=== PATIENT | male | born 1965 | race Two or more races ===

== ENCOUNTER 2024-01-05 14:50 | Outpatient (AMB) | payer OTHER, SELFPAY ==
[2024-01-05 14:59] VITALS: BP 128/66; PULSE 66; O2SAT 98; BMI 38.8
--- NOTE | 2024-01-05 14:59 | MHC.PC.OV ---
Vital Signs 01/05/24 14:59 Height 5 ft 7 in Weight 248 lb BMI 38.8 BP 128/66 Blood Pressure Location Lt brachial Position Sitting Pulse 66 Pulse Source Pulse Oximeter Pulse Oximetry (%) 98 Oxygen Delivery Method Room Air Intake Visit Reasons: New Patient/ Sleep Apnea Intake Note: Patient is here as a new patient, and he had a DOT physical, and they were concerned of his weight and thickness of his neck, patient has paperwork, he had gallbladder removed, and had a hernia pushed in. Allergies No Known Allergies Allergy (Unverified 01/05/24 15:06) Tobacco use date assessed: 01/05/24 Dental Screening Dental Screen Date: 01/05/24 Did you have a dental visit in the last 12 months?: Yes Did you have a dental problem in the last 6 months where you did not have access to dental care?: No Was dental information given to patient?: Patient has dentist HPI New Patient/ Sleep Apnea HPI Details New patient Prior PCP:?No recent PCP Acute issue(s): DOT referred for Weight & Neck Size; Concern for BETHANY PMHx: obesity SurgHx: GB. Umbilical Hernia FHx: Mom: . unknown, Dad: Unknown Half Brother: HTN. SocHx: Nonsmoker. EtOH None. No drugs PFSH Surgical History (Updated 01/05/24 @ 15:15 by Hedy Malhotra [facility]) Hx of cholecystectomy Social History (Updated 01/05/24 @ 15:22 by Hedy Malhotra [facility]) Household Members: Spouse Both parents involved: No Caregiver staying overnight: No Housing: House Are you a primary career counselor to a significant other at home: No Do you presently have visiting nurse or other home services: No 75 years or older and lives alone: No Alcohol intake: never Patient Tobacco Use Status: Never used Tobacco e-Cigarette/Vaping Use: Never Used service: No Current occupational status: employed 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 1. Little interest or pleasure in doing things: not at all 2. Feeling down, depressed, or hopeless: not at all 3. Trouble falling or staying asleep, or sleeping too much: not at all 4. Feeling tired or having little energy: not at all 5. Poor appetite or overeating: not at all 6. Feeling bad about yourself - or that you are a failure or have let yourself or your family down: several days 7. Trouble concentrating on things, such as reading the newspaper or watching television: not at all 8. Moving or speaking so slowly that other people could have noticed. Or the opposite - being so fidgety or restless that you have been moving around a lot more than usual: not at all 9. Thoughts that you would be better off or of hurting yourself in some way: not at all Total score: 1 Depression Screening Interpretation: Negative Depression Screening Done: Yes 50855 - PHQ-9 Billing: Yes Source: Developed by Drs. Cruz Guerin, Kendra Carpenter, Theodore Montes and colleagues, with an educational antionette from [employer]. Thrive Questionnaire Date Thrive assessed: 01/05/24 I am a: Patient What is your living situation today?: I have a steady place to live Within the past 12 months, did the food you bought not last and you didn't have the money to get more?: Never true Within the past 12 months, did you worry whether your food would run out before you got money to buy more?: Never true Do you have trouble paying for medicines?: No Do you have trouble getting transportation to medical appointments?: No Do you have trouble paying your heating and electricity bill?: No Do you have trouble taking care of your child, family member or friend?: No Do you have trouble with day-to-day activities such as bathing, preparing meals, shopping, managing finances, etc.?: No Are you currently unemployed and looking for a job?: No Are you interested in more education?: No THRIVE Score: 0 AUDIT C Alcohol Use Questionnaire (AUDIT-C) 1. How often do you have a drink containing alcohol?: Never 3. How often do you have six or more drinks on one occasion?: Never Total Score: 0 MENDY-7 AMB Questionnaire MENDY-7 Date MENDY - 7 assessed: 01/05/24 Feeling nervous, anxious, or on edge: 0 = Not at all Not being able to stop or control worryin = Not at all Worrying too much about different things: 0 = Not at all Trouble relaxin = Not at all Being so restless that it is hard to sit still: 0 = Not at all Becoming easily annoyed or irritable: 0 = Not at all Feeling afraid as if something awful might happen: 0 = Not at all Total MENDY-7 score (0-4 normal; 5-9 mild; 10-14 moderate; 15-21 severe): 0 Source: Developed by Drs. Cruz Guerin, Kendra Carpenter, Theodore Montes and colleagues, with an educational antionette from [employer]. MENDY-7 Assessment Billing MENDY-7 Assessment Tool: MENDY-7 Assessment 76809 Review of Systems Const Denies chills, Denies fatigue, Denies fever(s), Denies headache(s) and Denies weakness ENT Denies dizziness and Denies headache(s) Card Denies chest pain, Denies lightheadedness, Denies dyspnea and Denies other (Palpitations) Resp Denies cough, Denies dyspnea, Denies wheezing and Denies other ( shortness of breath) Musc Denies numbness and Denies tingling Neuro Denies dizziness, Denies headache(s), Denies numbness, Denies tingling, Denies paresthesias and Denies weakness Psych Denies anxiety and Denies depression Endo Denies fatigue Aller/Immun Denies wheezing Physical exam (Primary Care) Vital Signs: Last Vital Signs Pulse 66 01/05/24 14:59 BP 128/66 01/05/24 14:59 Pulse Ox 98 01/05/24 14:59 Oxygen Delivery Method Room Air 01/05/24 14:59 BMI result Body Mass Index 38.8 Tobacco/Smoking Status: Tobacco use Status Tobacco use date assessed 01/05/24 01/05/24 15:29 Patient Tobacco Use Status Never used Tobacco 01/05/24 15:29 e-Cigarette/Vaping Use Never Used 01/05/24 15:29 PHQ-9: PHQ-9 Score PHQ-9: Total score 1 01/05/24 15:29 Depression Screening Interpretation: Negative Thrive Assessment: Date of Thrive Assessment Date Thrive assessed 01/05/24 01/05/24 15:29 Const General: no acute distress and well developed Nutritional Appearance: well nourished and obese Orientation/consciousness: patient oriented x3 [facility] Head: Yes normocephalic and Yes atraumatic Eyes General: appearance normal, both eyes and all related structures Pupils: Equal, round and reactive pupils present EOM: EOMs intact bilaterally Resp Effort & Inspection: normal respiratory effort Auscultation: clear to auscultation bilaterally Cardio Rate: regular rate Rhythm: regular rhythm Heart sounds: S1 normal heart sound present, S2 normal heart sound present, no gallops, no murmurs and no rubs Neuro General: patient oriented x3 and gait normal Cranial nerves: Yes Equal, round and reactive pupils present Psych Affect: normal affect Assessment and Plan Assessment & Plan (1) Obesity: Code(s): E66.9 - Obesity, unspecified Plan: Obese?patient?with?neck?size?greater?than?43?cm Had?DOT?physical?and?is?referred?to?evaluate?for?sleep?apnea Will?ask?sleep?medicine?to?check?sleep?study (2) Laboratory exam ordered as part of routine general medical examination: Code(s): Z00.00 - Encounter for general adult medical examination without abnormal findings Plan: Check?labs Orders: Orders Microalbumin, Random (w Creat) Today I10 - Essential (primary) hypertension UA and rflx microscopic Today Z00.00 - Encounter for general adult medical examination without abnormal findings TSH reflex Free T4 Today Z00.00 - Encounter for general adult medical examination without abnormal findings Comprehensive [place]. Panel Fast Today Z00.00 - Encounter for general adult medical examination without abnormal findings Complete Blood Count Auto Diff Today Z00.00 - Encounter for general adult medical examination without abnormal findings Lipid Panel Today Z00.00 - Encounter for general adult medical examination without abnormal findings Prostate Specific Antigen Scr Today Z12.5 - Encounter for screening for malignant neoplasm of prostate Referrals Sleep Medicine Referral E66.9 - Obesity, unspecified Coding Level of Care Code New Pt Level 3 (74835) Diagnoses Obesity E66.9 Laboratory exam ordered as part of routine general medical examination Z00.00 Additional Codes MENDY-7 Assessment Billing - MENDY-7 Assessment Tool: MENDY-7 Assessment 14043 ([id number])
== END 2024-01-05 16:06 | disposition home or self-care (01) ==
PROVIDERS: PCP Family Medicine; Visit Provider Family Medicine
DX: E66.9 Obesity, unspecified (principal); Z68.38 Body mass index [BMI] 38.0-38.9, adult
CPT/HCPCS: 99203

== ENCOUNTER 2024-04-09 07:31 | Outpatient (REF) | payer OTHER, SELFPAY ==
[2024-04-09 11:31] LABS: MANUAL DIFF FLAG NO
[2024-04-09 11:34] LABS: Basophils Percent Auto 0.3 % (0-2); Eosinophils Absolute Auto 0.1 X10*3/uL (0.0-0.4); Hematocrit 37.2 % (42.0-52.0); Hemoglobin 12.2 g/dl (14.0-18.0); Imm Gran Abs Auto 0.08 X10*3/uL (0.00-0.03); Imm Gran Pct Auto 0.9 % (0.0-0.4); Lymphocytes Absolute Auto 2.4 X10*3/uL (1.2-4.9); Lymphocytes Percent Auto 26.7 % (20-40); Mean Corpuscular HGB Conc 32.8 g/dl (31.0-36.0); Mean Corpuscular Hemoglobin 28.2 pg (27.0-33.0); Mean Corpuscular Volume 85.9 fL (80.0-98.0); Mean Platelet Volume 12.6 fL (9.4-12.4); Monocytes Absolute Auto 0.8 X10*3/uL (0.1-1.2); Monocytes Percent Auto 8.7 % (2-11); Neutrophils Absolute Auto 5.7 x10*3/uL (2.0-8.3); Neutrophils Percent Auto 62.4 % (45-73); Platelet Count 160 X10*3/uL (160-400); Red Blood Count 4.33 X10*6/uL (4.60-5.80); Red Cell Distribution Width 13.7 % (11.0-16.0); White Blood Count 9.1 X10*3/uL (4.8-10.8)
[2024-04-09 12:21] LABS: Appearance Urine Clear; Color Urine Yellow; Glucose Urine UA Negative (Negative); Leukocyte Esterase Urine Negative (Negative); Nitrite Urine Negative (Negative); PH 5.5 (5.0-9.0); Specific Gravity - Urine 1.015 (1.005-1.025); Urine Blood Negative (Negative); Urine Ketones Negative (Negative); Urine Protein Negative (Neg-Trace)
[2024-04-09 12:22] LABS: Creatinine Urine 60.25 mg/dL; Microalbumin Urine < 5.0 mg/L
[2024-04-09 12:23] LABS: Prostate Specific Antigen Scr 0.34 ng/mL (<0.05-4.0)
[2024-04-09 12:28] LABS: Alanine Aminotransferase 24 U/L (0-40); Albumin Level 3.7 g/dL (3.5-5.0); Alkaline Phosphatase 65 U/L (39-117); Anion Gap 13 (12-20); Aspartate Amino Transferase 20 U/L (5-37); Bilirubin Total 0.4 mg/dL (0.0-1.0); Blood Urea Nitrogen 21 mg/dL (9-16); Calcium 9.2 mg/dL (8.4-10.2); Carbon Dioxide 25 mmol/L (22-29); Chloride 111 mmol/L (96-108); Cholesterol 187 mg/dL (<200); Estimated Glomerular Filt Rate > 60; Glucose Fasting 92 mg/dL (60-99); HDL Cholesterol 39 mg/dL (>40); LDL Cholesterol Calculated 134 mg/dL (<100); Potassium 4.3 mmol/L (3.3-5.1); Sodium 145 mmol/L (135-145); Total Protein 6.8 g/dL (6.5-8.0); Triglycerides 72 mg/dL (<150)
[2024-04-09 12:29] LABS: TSH reflex Free T4 2.45 uIU/mL (0.32-4.0)
== END 2024-04-09 07:32 | disposition home or self-care (01) ==
LOC: HO.WFDLDS 07:31
PROVIDERS: Visit Provider Family Medicine
DX: Z00.00 Encounter for general adult medical examination without abnormal findings (principal); Z12.5 Encounter for screening for malignant neoplasm of prostate; I10 Essential (primary) hypertension
CPT/HCPCS: 36415; 80053; 80061; 81003; 82043; 82570; 84153; 84443; 85025

== ENCOUNTER 2024-06-11 07:55 | Outpatient (AMB) | payer OTHER, SELFPAY ==
[2024-06-11 07:58] VITALS: BP 118/88; PULSE 59; O2SAT 98; BMI 36.8
--- NOTE | 2024-06-11 07:58 | A.OFFVIS_ITS ---
Vital Signs 06/11/24 07:58 Height 5 ft 7 in Weight 235 lb BMI 36.8 BP 118/88 Blood Pressure Location Rt brachial Pulse 59 Pulse Source Pulse Oximeter Pulse Oximetry (%) 98 Oxygen Delivery Method Room Air Intake Visit Reasons: INP- Obesity, unspecified - Conf Intake Note: Patient presents for follow up. 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 Allergies No Known Allergies Allergy (Unverified 06/11/24 08:14) Medication List - Last Reconciled 06/11/24 by ROSENDO Dalton No Known Home Meds HPI Comments Details: 59-yr-old male presents for new in-person patient visit for sleep consultation. Pt is accompanied by his . Patient reports he was advised to have sleep evaluation during his last DOT examination. A the time, pt notes that he had had a significant weight gain w/ increased neck girth as he had been out of work with significant activity restrictions following a choleycystectomy and abd hernia repair last year. During that time, he gained almost 50 lbs, which he is trying to lose. He does snore some. He states when his weight was higher, he had increased fatigue, daytime tiredness, but this is getting better. Otherwise denies GERD, restless legs, leg cramps, parasomnias. Sleep questionnaire: Have you ever been diagnosed with a sleep disorder? No Have you ever had a sleep study in the past? No Have you ever been treated for a sleep disorder? No Do you take medications for a sleep disorder? No Do you have difficulty initiating sleep? No Do you have difficulty maintaining sleep? No Do you wake up tired? At times Do you have daytime tiredness or fatigue? At times Do you snore? says yes Do you wake up gasping at night? No Do you have episodes of apneas? No Do you have episodes of nocturnal chest pain or dyspnea? No Do you have bruxism? No Do you have headaches upon awakening? No Do you wake up with dry mouth or throat? No Do you have GERD? No Do you have nocturia? No Do you have nocturnal leg cramps? No Do you have symptoms of restless legs? No. Do you act out your dreams? No Do you have sleep paralysis? No Do you have drop attacks? No Do you ever have hypnogenic hallucinations? No Hypersomnolence questionnaire: Have you ever had episodes of sudden weakness? No Have you ever had episodes of sudden weakness associated with strong emotions? No Sleep hygiene questionnaire: What is your usual sleep routine? Usual bedtime is at 8-9 pm; Usual wake-up time is at 6am. Do you take naps? Denies Is your sleep environment cool, dark, and quiet? Yes Do you exercise? Exercises most mornings- has a home elliptical/home-stepper cross, burpees, jumping rope. Do you take caffeine or other stimulants? None. Rarely green tea. Do you use electronics in bed? No What is your work schedule? 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 Cognitive needs: No Hearing needs: No Vision needs: Yes (Patient wears glasses.) Physical Exam Vital Signs: Last Vital Signs Pulse 59 06/11/24 07:58 BP 118/88 06/11/24 07:58 Pulse Ox 98 06/11/24 07:58 Oxygen Delivery Method Room Air 06/11/24 07:58 BMI result Body Mass Index 36.8 Const General: no acute distress Orientation/consciousness: patient oriented x3 HEENT Other: Mallampati stage 4 Resp Effort & Inspection: normal respiratory effort and able to speak in complete sentences Cardio Rate: regular rate Rhythm: regular rhythm Neuro General: patient oriented x3 Psych Mental Status: mental status grossly normal Speech and movement: Clear speech present Attitude: cooperative Assessment & Plan Assessment & Plan (1) Snoring: Code(s): R06.83 - Snoring Category: Medical (2) Daytime sleepiness: Code(s): R40.0 - Somnolence Category: Medical (3) Obesity: Code(s): E66.9 - Obesity, unspecified Category: Medical Plan Pt is advised to undergo HST sleep study to assess for sleep apnea, as pt has risk factors for sleep apnea and does operate a [employer] truck for his work. Concur w/ weight loss efforts- info shared on [employer] to help pt better understand dietary needs. Will f/u with pt after study to discuss results and appropriate treatment options. Pt to call with any worsening concerns or questions. Orders: Orders RT home sleep study Today E66.9 - Obesity, unspecified, R06.83 - Snoring, R40.0 - Somnolence Coding Level of Care Code New Pt Level 4 (34392) Diagnoses Snoring R06.83 Daytime sleepiness R40.0 Obesity E66.9 [place] Sleepiness Scale Questions Sitting and reading: moderate chance of dozing Watching TV: moderate chance of dozing Sitting inactive in a theater, movie etc.: would never doze As a passenger in a car for an hour without break: would never doze Lying down in the afternoon when circumstances permit: moderate chance of dozing Sitting and talking to someone: would never doze Sitting quietly after lunch without alcohol: moderate chance of dozing In a car, while stopped for a few minutes in the traffic: would never doze ESS < 10: normal, ESS > 12: pathologic: 8
== END 2024-06-11 09:03 | disposition home or self-care (01) ==
PROVIDERS: PCP Family Medicine; Visit Provider Nurse Practitioner Family
DX: R06.83 Snoring (principal); R40.0 Somnolence; E66.9 Obesity, unspecified
CPT/HCPCS: 99204

== ENCOUNTER → 2024-06-11 07:55 | Outpatient (BNVA) | payer OTHER, SELFPAY | PROVIDERS: PCP Family Medicine; Visit Provider Nurse Practitioner Family ==

== ENCOUNTER 2024-06-26 16:02 | Outpatient (AMB) | payer OTHER, SELFPAY ==
--- NOTE | 2024-06-26 16:18 | A.OFFPC_ITS ---
Vital Signs 06/26/24 16:29 Height 5 ft 7 in Weight 239 lb 4 oz BMI 37.5 BP 122/71 Blood Pressure Location Rt brachial Position Sitting Respiration 18 Pulse 79 Pulse Source Pulse Oximeter Temp 96.9 F Temp Source Tympanic Pulse Oximetry (%) 95 Oxygen Delivery Method Room Air Intake Visit Reasons: rutine damiánk up Intake Note: CPE Allergies No Known Allergies Allergy (Verified 06/26/24 16:19) Medication List - Last Reconciled 06/26/24 by Luis Arevalo MD No Known Home Meds Tobacco use date assessed: 06/26/24 Dental Screening Dental Screen Date: 06/26/24 Did you have a dental visit in the last 12 months?: Yes Did you have a dental problem in the last 6 months where you did not have access to dental care?: No Was dental information given to patient?: Patient has dentist HPI mikayla steelk up HPI Details 59 y/o male presents for CPE with f/u la bs and health maintenance. Labs drawn 04/09/24. Reviewed labs with pt. Anemia - Rbc 4.33, Hgb 12.2, Hct 37.2. Triglycerides 72. TC 187. LDL 134. HDL low at 39. PSA 0.34. Pt notes a colonoscopy more than 10 years ago. Pt reports hx of cholecystectomy. HPI Comments History of Present Illness Details Documentation assistance for Luis Arevalo MD, was provided by Otf Tafoya, [employer] on 06/26/2024 at 4:[address] Irina Naidu, have read, observed, and verified documentation. PFSH Surgical History Hx of cholecystectomy Social History (Updated 06/26/24 @ 16:23 by Andrew Schrader) Household Members: Spouse Both parents involved: No Caregiver staying overnight: No Housing: House Are you a primary outdoor emergency care technician to a significant other at home: No Do you presently have visiting nurse or other home services: No 75 years or older and lives alone: No Alcohol intake: never Patient Tobacco Use Status: Never used Tobacco e-Cigarette/Vaping Use: Never Used Second Hand Smoke Exposure: No Use of substances other than those prescribed or required for medical reasons: No service: No Current occupational status: employed 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 1. Little interest or pleasure in doing things: not at all 2. Feeling down, depressed, or hopeless: not at all 3. Trouble falling or staying asleep, or sleeping too much: not at all 4. Feeling tired or having little energy: not at all 5. Poor appetite or overeating: not at all 6. Feeling bad about yourself - or that you are a failure or have let yourself or your family down: not at all 7. Trouble concentrating on things, such as reading the newspaper or watching television: not at all 8. Moving or speaking so slowly that other people could have noticed. Or the opposite - being so fidgety or restless that you have been moving around a lot more than usual: not at all 9. Thoughts that you would be better off or of hurting yourself in some way: not at all Total score: 0 Depression Screening Interpretation: Negative Depression Screening Done: Yes 22199 - PHQ-9 Billing: Yes Source: Developed by Drs. Cruz Guerin, Kendra Carpenter, Theodore Montes and colleagues, with an educational antionette from [employer]. Thrive Questionnaire Date Thrive assessed: 06/26/24 I am a: Patient What is your living situation today?: I have a steady place to live Within the past 12 months, did the food you bought not last and you didn't have the money to get more?: Never true Within the past 12 months, did you worry whether your food would run out before you got money to buy more?: Never true Do you have trouble paying for medicines?: No Do you have trouble getting transportation to medical appointments?: No Do you have trouble paying your heating and electricity bill?: No Do you have trouble taking care of your child, family member or friend?: No Do you have trouble with day-to-day activities such as bathing, preparing meals, shopping, managing finances, etc.?: No Are you currently unemployed and looking for a job?: No Are you interested in more education?: Yes Please select the resources that you would like help with: None Currently or been in a relationship where the following occur: No concerns reported THRIVE Score: 0 AUDIT C Alcohol Use Questionnaire (AUDIT-C) 1. How often do you have a drink containing alcohol?: Never 3. How often do you have six or more drinks on one occasion?: Never Total Score: 0 Score Reviewed/Action Taken: Yes MENDY-7 AMB Questionnaire MENDY-7 Date MENDY - 7 assessed: 06/26/24 Feeling nervous, anxious, or on edge: 0 = Not at all Not being able to stop or control worryin = Not at all Worrying too much about different things: 0 = Not at all Trouble relaxin = Not at all Being so restless that it is hard to sit still: 0 = Not at all Becoming easily annoyed or irritable: 0 = Not at all Feeling afraid as if something awful might happen: 0 = Not at all Total MENDY-7 score (0-4 normal; 5-9 mild; 10-14 moderate; 15-21 severe): 0 Source: Developed by Drs. Cruz Guerin, Kendra Carpenter, Theodore Montes and colleagues, with an educational antionette from [employer]. MENDY-7 Assessment Billing MENDY-7 Assessment Tool: MENDY-7 Assessment 52736 Review of Systems Const Denies chills, Denies fatigue, Denies fever(s), Denies headache(s) and Denies weakness Eyes Denies change in vision ENT Denies dizziness, Denies headache(s), Denies hearing loss, Denies nasal congestion, Denies sinus pain, Denies sinus pressure and Denies sore throat Card Denies chest pain, Denies lightheadedness, Denies dyspnea and Denies other (palpitations) Resp Denies cough, Denies dyspnea and Denies wheezing GI Denies abdominal pain, Denies melena, Denies hematochezia, Denies change in bowel habits, Denies dyspepsia and Denies nausea Denies hematuria and Denies dysuria Musc Denies abnormal gait, Denies myalgias, Denies arthralgias, Denies numbness and Denies tingling Skin/Breast Denies rash, Denies unusual bruising and Denies wounds Neuro Denies abnormal gait, Denies dizziness, Denies headache(s), Denies memory loss, Denies numbness, Denies Sensory deficit (Neuro), Denies tingling and Denies weakness Psych Denies anxiety, Denies depression and Denies memory loss Endo Denies cold intolerance, Denies fatigue, Denies heat intolerance, Denies polydipsia and Denies polyuria Jose Antonio/Lymph Denies easy bleeding and Denies easy bruising Aller/Immun Denies wheezing Physical exam (Primary Care) Tobacco/Smoking Status: Tobacco use Status Tobacco use date assessed 06/26/24 06/26/24 16:27 Patient Tobacco Use Status Never used Tobacco 06/26/24 16:23 e-Cigarette/Vaping Use Never Used 06/26/24 16:23 PHQ-9: PHQ-9 Score PHQ-9: Total score 0 06/26/24 16:27 Depression Screening Interpretation: Negative Thrive Assessment: Date of Thrive Assessment Date Thrive assessed 06/26/24 06/26/24 16:27 Currently or been in a relationship where the following occur: No concerns reported Const General: no acute distress, well developed, alert and awake Nutritional Appearance: well nourished and obese Orientation/consciousness: patient oriented x3 HENMT Head: Yes normocephalic and Yes atraumatic Ears: hearing grossly normal bilaterally and TM's normal bilaterally General nose exam: Normal external nose present and Normal nares present Mouth: Normal oral and palatal mucosa present and moist mucous membranes Teeth and gingiva: dentition normal Throat: Yes posterior oropharynx normal Eyes General: appearance normal, both eyes and all related structures Pupils: Equal, round and reactive pupils present and Pupil accommodation reflex normal EOM: EOMs intact bilaterally Neck Neck: Yes normal visual inspection, Yes no lymphadenopathy and Yes trachea midline Thyroid: Thyroid normal Carotids: no bruits Lymphatic: no lymphadenopathy noted Chest Chest palpation & inspection: normal inspection of the chest Resp Effort & Inspection: normal respiratory effort Auscultation: clear to auscultation bilaterally Cardio Rate: regular rate Rhythm: regular rhythm Heart sounds: S1 normal heart sound present, S2 normal heart sound present, no gallops, no murmurs and no rubs Bruits: no abdominal aortic bruits and no carotid bruits GI Palpation (GI): No Abdominal aortic bruit present, Soft to palpation, nontender, No hepatosplenomegaly present and No Rebound tenderness present Auscultation: normal bowel sounds General: Yes no CVA tenderness Back/Spine/Pelvis Back: no CVA tenderness Cervical Spine: cervical ROM normal and No Cervical spine tenderness Thoracic/Lumbar Spine: thoraco-lumbar ROM normal, No pain with thoraco-lumbar ROM, No thoracic spinal tenderness and No lumbar spinal tenderness Skin Lesions: no lesions Rashes: no rashes Trauma: no lacerations or abrasions Wounds: no wounds Nails: normal Neuro General: patient oriented x3 Cranial nerves: Yes Equal, round and reactive pupils present Cognition (Neuro): normal cognition Gait exam (Neuro): Normal gait present Motor exam (neuro): 5/5 motor strength present throughout Sensory Exam: No Sensory deficit (Neuro) Deep tendon reflexes (DTR's): Right patellar reflex intensity grade: 2+ and Left patellar reflex intensity grade: 2+ Extrem General: Yes normal to inspection and No edema Psych Appearance: grossly normal Affect: normal affect Attitude: cooperative Thought process: Normal thought process present Assessment and Plan Assessment & Plan (1) Adult general medical exam: Code(s): Z00.00 - Encounter for general adult medical examination without abnormal findings Plan: 59-year-old?male?presents?for?complete?physical?exam Encouraged?healthy?diet?with?active?lifestyle?and?plenty?of?exercise Continue?weight?loss (2) Anemia: Code(s): D64.9 - Anemia, unspecified Plan: Mild?anemia Unclear?cause Will?recheck?CBC?as?well?as?iron?levels,?B12?and?retic?count (3) Elevated LDL cholesterol level: Code(s): E78.00 - Pure hypercholesterolemia, unspecified Plan: Encouraged?a?diet?low?in?saturated?fats?and?cholesterol Will?recheck?with?next?blood?draw No?medication?changes?today (4) Low HDL (under 40): Code(s): E78.6 - Lipoprotein deficiency Plan: Rechecking?with?next?blood?draw (5) Screening for prostate cancer: Code(s): Z12.5 - Encounter for screening for malignant neoplasm of prostate Plan: PSA?was?within?normal?range Continue?annual?screening (6) Screening for colon cancer: Code(s): Z12.11 - Encounter for screening for malignant neoplasm of colon Plan: Due?for?colonoscopy.? ?Referred?to?Gastroenterology (7) Hx of cholecystectomy: Code(s): Z90.49 - Acquired absence of other specified parts of digestive tract Plan: Avoid?fried/fatty?and?oily?foods (8) Daytime sleepiness: Code(s): R40.0 - Somnolence Plan: Patient?has?appointment?to?get?equipment?for?at-home?sleep?study Follow-up?with?sleep?medicine?as?recommended Orders: Orders Vitamin B12 and Folate Today D64.9 - Anemia, unspecified, E53.8 - Deficiency of other specified B group vitamins Ferritin Today D64.9 - Anemia, unspecified Complete Blood Count Auto Diff Today D64.9 - Anemia, unspecified IRON PROFILE Today D64.9 - Anemia, unspecified Reticulocyte Count Today D64.9 - Anemia, unspecified Lipid Panel Today E78.00 - Pure hypercholesterolemia, unspecified, E78.6 - Lipoprotein deficiency, Z00.00 - Encounter for general adult medical examination without abnormal findings Comprehensive [place]. Panel Fast Today E78.00 - Pure hypercholesterolemia, unspecified, Z00.00 - Encounter for general adult medical examination without abnormal findings Referrals Gastroenterology Referral Z12.11 - Encounter for screening for malignant neoplasm of colon Coding Level of Care Code Est Pt Level 3 (57618) Est Pt Prev Care 40-64y(61506) Diagnoses Adult general medical exam Z00.00 Anemia D64.9 Elevated LDL cholesterol level E78.00 Low HDL (under 40) E78.6 Screening for prostate cancer Z12.5 Screening for colon cancer Z12.11 Hx of cholecystectomy Z90.49 Daytime sleepiness R40.0 Additional Codes MENDY-7 Assessment Billing - MENDY-7 Assessment Tool: MENDY-7 Assessment 10058 ([id number])
[2024-06-26 16:29] VITALS: BP 122/71; PULSE 79; RESP 18; TEMP 36.1; O2SAT 95; BMI 37.5
== END 2024-06-26 16:56 | disposition home or self-care (01) ==
PROVIDERS: PCP Family Medicine; Visit Provider Family Medicine
DX: Z00.00 Encounter for general adult medical examination without abnormal findings (principal); D64.9 Anemia, unspecified; E78.00 Pure hypercholesterolemia, unspecified; R40.0 Somnolence; E78.6 Lipoprotein deficiency; Z12.5 Encounter for screening for malignant neoplasm of prostate; Z12.11 Encounter for screening for malignant neoplasm of colon; Z90.49 Acquired absence of other specified parts of digestive tract
CPT/HCPCS: 99396

== ENCOUNTER 2024-10-01 13:17 | Outpatient (REF) | payer OTHER, SELFPAY ==
[2024-10-01 17:39] LABS: MANUAL DIFF FLAG NO
[2024-10-01 17:51] LABS: Basophils Percent Auto 0.4 % (0-2); Eosinophils Absolute Auto 0.1 X10*3/uL (0.0-0.4); Eosinophils Percent Auto 0.8 % (0-4); Hematocrit 38.4 % (42.0-52.0); Hemoglobin 12.9 g/dl (14.0-18.0); Imm Gran Abs Auto 0.06 X10*3/uL (0.00-0.03); Imm Gran Pct Auto 0.7 % (0.0-0.4); Immature Retic Fraction 16.1 % (2.3-13.4); Lymphocytes Absolute Auto 1.9 X10*3/uL (1.2-4.9); Lymphocytes Percent Auto 22.4 % (20-40); Mean Corpuscular HGB Conc 33.6 g/dl (31.0-36.0); Mean Corpuscular Hemoglobin 28.7 pg (27.0-33.0); Mean Corpuscular Volume 85.3 fL (80.0-98.0); Monocytes Absolute Auto 0.8 X10*3/uL (0.1-1.2); Monocytes Percent Auto 8.9 % (2-11); Neutrophils Absolute Auto 5.7 x10*3/uL (2.0-8.3); Neutrophils Percent Auto 66.8 % (45-73); Platelet Count 156 X10*3/uL (160-400); Red Cell Distribution Width 13.5 % (11.0-16.0); Retic HGB Equivalent 31.2 pg (30.0-35.0); Reticulocyte Percent 1.6 % (0.5-1.8); Reticulocytes Absolute 0.073 X10*6/uL (0.026-0.095); White Blood Count 8.5 X10*3/uL (4.8-10.8)
[2024-10-01 18:16] LABS: Alanine Aminotransferase 24 U/L (0-40); Albumin Level 3.9 g/dL (3.5-5.0); Alkaline Phosphatase 73 U/L (39-117); Anion Gap 9 (12-20); Aspartate Amino Transferase 23 U/L (5-37); Bilirubin Total 0.5 mg/dL (0.0-1.0); Blood Urea Nitrogen 19 mg/dL (9-16); Calcium 9.6 mg/dL (8.4-10.2); Carbon Dioxide 28 mmol/L (22-29); Chloride 110 mmol/L (96-108); Cholesterol 188 mg/dL (<200); Estimated Glomerular Filt Rate > 60; Glucose Fasting 84 mg/dL (60-99); HDL Cholesterol 43 mg/dL (>40); Iron 98 mcg/dL (45-160); LDL Cholesterol Calculated 128 mg/dL (<100); Percent Iron Saturation 36 % (15-50); Potassium 4.5 mmol/L (3.3-5.1); Sodium 142 mmol/L (135-145); Total Iron Binding Capacity 274 mcg/dL (228-428); Total Protein 7.1 g/dL (6.5-8.0); Triglycerides 85 mg/dL (<150); Unsaturated Iron Binding 176 ug/dL
[2024-10-01 18:33] LABS: Ferritin 271 ng/mL (20-250)
[2024-10-01 18:41] LABS: Folate 10.3 ng/mL (> or = 4.0); Vitamin B12 589 pg/mL (200-900)
== END 2024-10-01 13:18 | disposition home or self-care (01) ==
LOC: HO.WFDLDS 13:17
PROVIDERS: Visit Provider Family Medicine
DX: Z00.00 Encounter for general adult medical examination without abnormal findings (principal); E78.00 Pure hypercholesterolemia, unspecified; E78.6 Lipoprotein deficiency; E53.8 Deficiency of other specified B group vitamins; D64.9 Anemia, unspecified
CPT/HCPCS: 36415; 80053; 80061; 82607; 82728; 82746; 83540; 85025; 85045

== ENCOUNTER 2024-10-25 09:34 | Outpatient (AMB) | payer OTHER, SELFPAY ==
--- NOTE | 2024-10-25 10:13 | A.OFFPC_ITS ---
Vital Signs 10/25/24 10:14 Height 5 ft 7 in Weight 242 lb 2 oz BMI 37.9 BP 120/70 Blood Pressure Location Rt brachial Position Sitting Respiration 14 Pulse 63 Pulse Source Pulse Oximeter Pulse Oximetry (%) 96 Oxygen Delivery Method Room Air Intake Visit Reasons: LabWorkFollowUp Intake Note: lab review Allergies No Known Allergies Allergy (Verified 10/25/24 10:14) Tobacco use date assessed: 06/26/24 Dental Screening Dental Screen Date: 06/26/24 HPI LabWorkFollowUp HPI Details 59 y/o male presents to f/u labs. Following up on mild anemia, lipids. Labs drawn 10/01/24. Reviewed labs with pt. Mild anemia mildly improved. Triglycerides 85. TC 188. LDL 128. HDL 43. He notes he had an abnormal EKG a few weeks ago and he notes they had seen a silent heart attack . He notes he has an appt. with Cardiology. HPI Comments History of Present Illness Details Documentation assistance for Luis Arevalo MD, was provided by Otf Tafoya,? [employer] on 10/25/2024 at 10:21 AM EZEKIEL. I, Dr. Arevalo, have read, observed, and verified documentation. ?? PFSH Surgical History (Updated 06/26/24 @ 16:40 by Otf Tafoya) Hx of cholecystectomy Social History (Updated 06/26/24 @ 16:23 by Andrew Schrader [facility]) Household Members: Spouse Both parents involved: No Caregiver staying overnight: No Housing: House Are you a primary wound care coordinator to a significant other at home: No Do you presently have visiting nurse or other home services: No 75 years or older and lives alone: No Alcohol intake: never Patient Tobacco Use Status: Never used Tobacco e-Cigarette/Vaping Use: Never Used Second Hand Smoke Exposure: No service: No Current occupational status: employed 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 1. Little interest or pleasure in doing things: not at all 2. Feeling down, depressed, or hopeless: not at all 3. Trouble falling or staying asleep, or sleeping too much: not at all 4. Feeling tired or having little energy: not at all 5. Poor appetite or overeating: not at all 6. Feeling bad about yourself - or that you are a failure or have let yourself or your family down: not at all 7. Trouble concentrating on things, such as reading the newspaper or watching television: not at all 8. Moving or speaking so slowly that other people could have noticed. Or the opposite - being so fidgety or restless that you have been moving around a lot more than usual: not at all 9. Thoughts that you would be better off or of hurting yourself in some way: not at all Total score: 0 Source: Developed by Drs. Cruz Guerin, Kendra Carpenter, Theodore Montes and colleagues, with an educational antionette from [employer]. Thrive Questionnaire Date Thrive assessed: 06/26/24 I am a: Patient What is your living situation today?: I have a steady place to live Within the past 12 months, did the food you bought not last and you didn't have the money to get more?: Never true Within the past 12 months, did you worry whether your food would run out before you got money to buy more?: Never true Do you have trouble paying for medicines?: No Do you have trouble getting transportation to medical appointments?: No Do you have trouble paying your heating and electricity bill?: No Do you have trouble taking care of your child, family member or friend?: No Do you have trouble with day-to-day activities such as bathing, preparing meals, shopping, managing finances, etc.?: No Are you currently unemployed and looking for a job?: No Are you interested in more education?: Yes Please select the resources that you would like help with: Education Currently or been in a relationship where the following occur: No concerns reported THRIVE Score: 0 AUDIT C Alcohol Use Questionnaire (AUDIT-C) 1. How often do you have a drink containing alcohol?: Never Total Score: 0 MENDY-7 AMB Questionnaire MENDY-7 Date MENDY - 7 assessed: 06/26/24 Feeling nervous, anxious, or on edge: 0 = Not at all Not being able to stop or control worryin = Not at all Worrying too much about different things: 0 = Not at all Trouble relaxin = Not at all Being so restless that it is hard to sit still: 0 = Not at all Becoming easily annoyed or irritable: 0 = Not at all Feeling afraid as if something awful might happen: 0 = Not at all Total MENDY-7 score (0-4 normal; 5-9 mild; 10-14 moderate; 15-21 severe): 0 Source: Developed by Drs. Cruz Guerin, Kendra Carpenter, Theodore Montes and colleagues, with an educational antionette from [employer]. Review of Systems Const Denies chills, Denies fatigue, Denies fever(s), Denies headache(s) and Denies weakness ENT Denies dizziness and Denies headache(s) Card Denies dyspnea Resp Denies cough, Denies dyspnea, Denies wheezing and Denies other (shortness of breath) Musc Denies numbness and Denies tingling Neuro Denies dizziness, Denies headache(s), Denies numbness, Denies tingling and Denies weakness Psych Denies anxiety and Denies depression Endo Denies fatigue Aller/Immun Denies wheezing Physical exam (Primary Care) Vital Signs: Last Vital Signs Pulse 63 10/25/24 10:14 Resp 14 10/25/24 10:14 BP 120/70 10/25/24 10:14 Pulse Ox 96 10/25/24 10:14 Oxygen Delivery Method Room Air 10/25/24 10:14 BMI result Body Mass Index 37.9 Tobacco/Smoking Status: Tobacco use Status Tobacco use date assessed 06/26/24 10/25/24 10:17 Patient Tobacco Use Status Never used Tobacco 10/25/24 10:17 e-Cigarette/Vaping Use Never Used 10/25/24 10:17 PHQ-9: PHQ-9 Score PHQ-9: Total score 0 10/25/24 10:21 Thrive Assessment: Date of Thrive Assessment Date Thrive assessed 06/26/24 10/25/24 10:17 Currently or been in a relationship where the following occur: No concerns reported Const General: well developed; No acute distress Nutritional Appearance: well nourished Orientation/consciousness: patient oriented x3 HENMT Head: Yes normocephalic and Yes atraumatic Eyes General: appearance normal, both eyes and all related structures Pupils: Equal, round and reactive pupils present EOM: EOMs intact bilaterally Resp Effort & Inspection: normal respiratory effort Auscultation: clear to auscultation bilaterally Cardio Rate: regular rate Rhythm: regular rhythm Heart sounds: S1 normal heart sound present, S2 normal heart sound present, no gallops, no murmurs and no rubs Neuro General: patient oriented x3 and gait normal Cranial nerves: Yes Equal, round and reactive pupils present Psych Affect: normal affect Coding Level of Care Code Est Pt Level 4 (77928) Diagnoses Anemia D64.9 Elevated LDL cholesterol level E78.00 Abnormal EKG R94.31 Low HDL (under 40) E78.6 Assessment & Plan Assessment & Plan (1) Anemia: Code(s): D64.9 - Anemia, unspecified Category: Medical Plan: Mild?anemia?which?has?improved?slightly .??Will?continue?monitor (2) Elevated LDL cholesterol level: Code(s): E78.00 - Pure hypercholesterolemia, unspecified Category: Medical Plan: Mildly?improved Encouraged?weight?loss?and?diet?lower?in?saturated?fats?and?cholesterol Will?continue?monitor (3) Abnormal EKG: Code(s): R94.31 - Abnormal electrocardiogram [ECG] [EKG] Category: Medical Plan: Patient?says?he?was?seen?at?urgent?care?recently. 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 Normal?EKG. Unclear?what?underlying?issue?was?with?prior?EKG?but?I?do?not?see?anything?repre sentative?of?an?old?heart?attack. Patient ?does?have?an?appointment?with?a?program services assistant?and?will?follow-up?there. (4) Low HDL (under 40): Code(s): E78.6 - Lipoprotein deficiency Category: Medical Plan: HDL?now?in?normal?range Orders: Orders AMB EKG-In Office Today R94.31 - Abnormal electrocardiogram [ECG] [EKG] Lipid Panel Today E78.00 - Pure hypercholesterolemia, unspecified, Z00.00 - Encounter for general adult medical examination without abnormal findings Comprehensive [place]. Panel Fast Today E78.00 - Pure hypercholesterolemia, unspecified, Z00.00 - Encounter for general adult medical examination without abnormal findings
[2024-10-25 10:14] VITALS: BP 120/70; PULSE 63; RESP 14; O2SAT 96; BMI 37.9
== END 2024-10-25 11:01 | disposition home or self-care (01) ==
PROVIDERS: PCP Family Medicine; Visit Provider Family Medicine
DX: D64.9 Anemia, unspecified (principal); E78.00 Pure hypercholesterolemia, unspecified; R94.31 Abnormal electrocardiogram [ECG] [EKG]; E78.6 Lipoprotein deficiency

== ENCOUNTER → 2024-10-25 09:34 | Outpatient (BNVA) | payer OTHER, SELFPAY | PROVIDERS: PCP Family Medicine; Visit Provider Family Medicine ==

== ENCOUNTER 2025-06-06 07:45 | Outpatient (REF) | payer OTHER, SELFPAY ==
[2025-06-06 12:04] LABS: Alanine Aminotransferase 37 U/L (0-40); Albumin Level 4.3 g/dL (3.5-5.0); Alkaline Phosphatase 80 U/L (39-117); Anion Gap 11 (12-20); Aspartate Amino Transferase 41 U/L (5-37); Blood Urea Nitrogen 15 mg/dL (9-16); Calcium 9.1 mg/dL (8.4-10.2); Carbon Dioxide 24 mmol/L (22-29); Chloride 109 mmol/L (96-108); Cholesterol 167 mg/dL (<200); Estimated Glomerular Filt Rate > 60; HDL Cholesterol 29 mg/dL (>40); Potassium 3.9 mmol/L (3.3-5.1); Sodium 140 mmol/L (135-145); Total Protein 7.6 g/dL (6.5-8.0); Triglycerides 133 mg/dL (<150)
== END 2025-06-06 07:46 | disposition home or self-care (01) ==
LOC: HO.WFDLDS 07:45
PROVIDERS: Visit Provider Family Medicine
DX: Z00.00 Encounter for general adult medical examination without abnormal findings (principal); E78.00 Pure hypercholesterolemia, unspecified
CPT/HCPCS: 36415; 80053; 80061

== ENCOUNTER 2025-06-13 07:52 | Outpatient (AMB) | payer OTHER, SELFPAY ==
--- NOTE | 2025-06-13 08:17 | MHC.PC.OV ---
Vital Signs 06/13/25 08:22 Height 5 ft 7 in Weight 225 lb 2 oz BMI 35.3 BP 118/82 Blood Pressure Location Rt brachial Position Sitting Respiration 14 Pulse 73 Pulse Source Pulse Oximeter Temp 97.7 F Temp Source Temporal Artery Scan Pulse Oximetry (%) 96 Oxygen Delivery Method Room Air Intake Visit Reasons: labs Intake Note: Otf presents in the office today to follow up on his labs. Allergies No Known Allergies Allergy (Verified 06/13/25 08:19) Medication List - Last Reconciled 06/13/25 by Luis Arevalo MD No Known Home Meds Tobacco use date assessed: 06/13/25 Dental Screening Dental Screen Date: 06/13/25 Did you have a dental visit in the last 12 months?: No Did you have a dental problem in the last 6 months where you did not have access to dental care?: No Was dental information given to patient?: Patient declined HPI labs HPI Details Patient returns to follow-up hyperlipidemia and obesity. He has been working on weight loss and has lost about 17 lb since last visit LDL cholesterol has continue to decrease but is still above goal and his HDL is too low AST is elevated Patient also has complaints of bloating PFSH Medical History (Updated 06/13/25 @ 09:06 by Luis Arevalo MD) Abnormal EKG Surgical History (Updated 06/26/24 @ 16:40 by Otf Tafoya) Hx of cholecystectomy Social History (Updated 06/13/25 @ 08:21 by Anjana Weaver MA) Household Members: Spouse Both parents involved: No Caregiver staying overnight: No Housing: House Are you a primary family day carer to a significant other at home: No Do you presently have visiting nurse or other home services: No 75 years or older and lives alone: No Alcohol intake: never Patient Tobacco Use Status: Never used Tobacco e-Cigarette/Vaping Use: Never Used Second Hand Smoke Exposure: No service: No Current occupational status: employed 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 1. Little interest or pleasure in doing things: not at all 2. Feeling down, depressed, or hopeless: not at all 3. Trouble falling or staying asleep, or sleeping too much: not at all 4. Feeling tired or having little energy: not at all 5. Poor appetite or overeating: not at all 6. Feeling bad about yourself - or that you are a failure or have let yourself or your family down: not at all 7. Trouble concentrating on things, such as reading the newspaper or watching television: not at all 8. Moving or speaking so slowly that other people could have noticed. Or the opposite - being so fidgety or restless that you have been moving around a lot more than usual: not at all 9. Thoughts that you would be better off or of hurting yourself in some way: not at all Total score: 0 Depression Screening Interpretation: Negative Depression Screening Done: Yes 75856 - PHQ-9 Billing: Yes Source: Developed by Drs. Cruz Guerin, Kendra Carpenter, Theodore Montes and colleagues, with an educational antionette from [employer]. Thrive Questionnaire Date Thrive assessed: 06/13/25 I am a: Patient What is your living situation today?: I have a steady place to live Within the past 12 months, did the food you bought not last and you didn't have the money to get more?: Never true Within the past 12 months, did you worry whether your food would run out before you got money to buy more?: Never true Do you have trouble paying for medicines?: No Do you have trouble getting transportation to medical appointments?: No Do you have trouble paying your heating and electricity bill?: No Do you have trouble taking care of your child, family member or friend?: No Do you have trouble with day-to-day activities such as bathing, preparing meals, shopping, managing finances, etc.?: No Are you currently unemployed and looking for a job?: No Are you interested in more education?: Yes Please select the resources that you would like help with: None Currently or been in a relationship where the following occur: No concerns reported THRIVE Score: 0 AUDIT C Alcohol Use Questionnaire (AUDIT-C) 1. How often do you have a drink containing alcohol?: Never 3. How often do you have six or more drinks on one occasion?: Never Total Score: 0 MENDY-7 AMB Questionnaire MENDY-7 Date MENDY - 7 assessed: 06/13/25 Feeling nervous, anxious, or on edge: 0 = Not at all Not being able to stop or control worryin = Not at all Worrying too much about different things: 0 = Not at all Trouble relaxin = Not at all Being so restless that it is hard to sit still: 0 = Not at all Becoming easily annoyed or irritable: 0 = Not at all Feeling afraid as if something awful might happen: 0 = Not at all Total MENDY-7 score (0-4 normal; 5-9 mild; 10-14 moderate; 15-21 severe): 0 Source: Developed by Drs. Cruz Guerin, Kendra Carpenter, Theodore Montes and colleagues, with an educational antionette from [employer]. MENDY-7 Assessment Billing MENDY-7 Assessment Tool: MENDY-7 Assessment 53937 Review of Systems Const Denies chills, Denies fatigue, Denies fever(s), Denies headache(s) and Denies weakness ENT Denies dizziness and Denies headache(s) Card Denies chest pain, Denies lightheadedness, Denies dyspnea and Denies other (Palpitations) Resp Denies cough, Denies dyspnea, Denies wheezing and Denies other ( shortness of breath) GI Details: Mild bloating Musc Denies numbness and Denies tingling Neuro Denies dizziness, Denies headache(s), Denies numbness, Denies tingling, Denies paresthesias and Denies weakness Psych Denies anxiety and Denies depression Endo Denies fatigue Aller/Immun Denies wheezing Physical exam (Primary Care) Vital Signs: Last Vital Signs Temp 97.7 F 06/13/25 08:22 Pulse 73 06/13/25 08:22 Resp 14 06/13/25 08:22 BP 118/82 06/13/25 08:22 Pulse Ox 96 06/13/25 08:22 Oxygen Delivery Method Room Air 06/13/25 08:22 BMI result Body Mass Index 35.3 Tobacco/Smoking Status: Tobacco use Status Tobacco use date assessed 06/13/25 06/13/25 08:25 Patient Tobacco Use Status Never used Tobacco 06/13/25 08:21 e-Cigarette/Vaping Use Never Used 06/13/25 08:21 PHQ-9: PHQ-9 Score PHQ-9: Total score 0 06/13/25 08:25 Depression Screening Interpretation: Negative Thrive Assessment: Date of Thrive Assessment Date Thrive assessed 06/13/25 06/13/25 08:25 Currently or been in a relationship where the following occur: No concerns reported Const General: no acute distress and well developed Nutritional Appearance: well nourished Orientation/consciousness: patient oriented x3 HENMT Head: Yes normocephalic and Yes atraumatic Eyes General: appearance normal, both eyes and all related structures Pupils: Equal, round and reactive pupils present EOM: EOMs intact bilaterally Resp Effort & Inspection: normal respiratory effort Auscultation: clear to auscultation bilaterally Cardio Rate: regular rate Rhythm: regular rhythm Heart sounds: S1 normal heart sound present, S2 normal heart sound present, no gallops, no murmurs and no rubs GI Other: Bowel sounds normal, Soft, NT/ND, no rebound tenderness Neuro General: patient oriented x3 and gait normal Cranial nerves: Yes Equal, round and reactive pupils present Psych Affect: normal affect Coding Level of Care Code Est Pt Level 4 (12615) Diagnoses Elevated LDL cholesterol level E78.00 Low HDL (under 40) E78.6 Bloating R14.0 Obesity E66.9 Elevated AST (SGOT) R74.01 Additional Codes MENDY-7 Assessment Billing - MENDY-7 Assessment Tool: MENDY-7 Assessment 19567 ([id number]) PHQ-9 - 31457 - PHQ-9 Billing: Yes ([id number]) Assessment & Plan Assessment & Plan (1) Elevated LDL cholesterol level: Code(s): E78.00 - Pure hypercholesterolemia, unspecified Category: Medical Plan: LDL cholesterol is still too high though improved. HDL cholesterol is too low He would like to start Zetia Will recheck lipids in 2-3 months (2) Low HDL (under 40): Code(s): E78.6 - Lipoprotein deficiency Category: Medical Plan: As above (3) Bloating: Code(s): R14.0 - Abdominal distension (gaseous) Category: Medical Plan: Hydrate well Encouraged smaller meals Try FiberCon (4) Obesity: Code(s): E66.9 - Obesity, unspecified Category: Medical Plan: Encouraged smaller portion sizes Encouraged exercise Will continue to monitor weight (5) Elevated AST (SGOT): Code(s): R74.01 - Elevation of levels of liver transaminase levels Category: Medical Plan: Mildly elevated AST Hydrate well Continue weight loss Will recheck with next blood draw Orders: Orders Lipid Panel Today Z00.00 - Encounter for general adult medical examination without abnormal findings Comprehensive [place]. Panel Fast Today Z00.00 - Encounter for general adult medical examination without abnormal findings Medications: New ezetimibe (Zetia) 10 mg PO DAILY 90 tabs 3RF 90 days
[2025-06-13 08:22] VITALS: BP 118/82; PULSE 73; RESP 14; TEMP 36.5; O2SAT 96; BMI 35.3
== END 2025-06-13 09:01 | disposition home or self-care (01) ==
LOC: HO.HMCFM 07:53
PROVIDERS: PCP Family Medicine; Visit Provider Family Medicine
DX: E78.00 Pure hypercholesterolemia, unspecified (principal); E66.9 Obesity, unspecified; Z68.35 Body mass index [BMI] 35.0-35.9, adult; E78.6 Lipoprotein deficiency; R14.0 Abdominal distension (gaseous); R74.01 Elevation of levels of liver transaminase levels

== ENCOUNTER → 2025-06-13 07:52 | Outpatient (BNVA) | payer OTHER, SELFPAY | PROVIDERS: PCP Family Medicine; Visit Provider Family Medicine | DX: E78.6 Lipoprotein deficiency (principal); E78.00 Pure hypercholesterolemia, unspecified; R14.0 Abdominal distension (gaseous); E66.9 Obesity, unspecified; R74.01 Elevation of levels of liver transaminase levels; Z68.35 Body mass index [BMI] 35.0-35.9, adult | CPT/HCPCS: 96127 ==